=== PATIENT | female | born 1970 | race Caucasian/White ===

== ENCOUNTER 2017-01-29 15:20 | Outpatient (CLI) ==
[2017-01-29 15:53] LABS: ALBUMIN 3.6 g/dL (3.4-5.0); ALBUMIN/GLOBULIN RATIO 1.09; ANION GAP 12.1; BILIRUBIN,TOTAL 0.45 mg/dL (0.00-1.20); BUN/CREATININE RATIO 13.25; CALCIUM 9.8 mg/dL (8.2-10.2); CREATININE 0.83 mg/dL (0.60-1.30); POTASSIUM 4.1 mmol/L (3.5-5.10); TOTAL PROTEIN 6.9 g/dL (6.4-8.2)
== END 2017-01-29 15:21 | disposition home or self-care (01) ==
LOC: LAB 15:20
PROVIDERS: ATTEND Physician Assistant
DX: R35.0 Frequency of micturition (principal)
CPT/HCPCS: 36415; 80053

== ENCOUNTER 2017-01-30 09:54 | Outpatient (CLI) ==
[2017-01-30 10:11] LABS: BASOPHILS # (AUTO) 0.1 K/uL (0-0.2); BASOPHILS % (AUTO) 0.7 % (0.0-3.0); EOSINOPHILS # (AUTO) 0.3 K/ul (0.0-0.7); EOSINOPHILS % (AUTO) 4.3 % (0.0-7.0); HEMOGLOBIN 13.7 g/dl (12.0-16.0); IMMATURE GRANULOCYTE % (AUTO) 0.3 % (0.0-5.0); LYMPHOCYTES # (AUTO) 2.1 K/uL (0.60-3.4); LYMPHOCYTES % (AUTO) 29.4 (10.0-50.0); MEAN CORPUSCULAR HEMOGLOBIN 28.5 pg (27.0-31.0); MEAN CORPUSCULAR HGB CONC 33.4 (31.8-35.4); MEAN CORPUSCULAR VOLUME 85.2 fl (81.0-99.0); MONOCYTES # (AUTO) 0.5 K/uL (0.4-2.0); MONOCYTES % (AUTO) 6.5 (0-10); NEUTROPHILS # (AUTO) 4.2 K/ul (2.0-6.9); NEUTROPHILS % (AUTO) 58.8; PLATELET COUNT 210 10^3/uL (140-440); RED BLOOD COUNT 4.81 10^6/ul (4.20-5.40)
[2017-01-30 10:57] LABS: CHOL/HDL RATIO 4.8 (4.5-5.5)
--- NOTE | 2017-01-30 11:29 | CT ---
EXAM: CT ABDOMEN AND PELVIS HISTORY: Frequent urination, left upper quadrant abdominal pain, left flank pain. TECHNIQUE: CT abdomen and pelvis with and without intravenous contrast. Images were reconstructed using 5 mm section thickness. Reformations were prepared. 75 mL Omnipaque. COMPARISON: 03/31/2016 FINDINGS: Right hepatic lobe measures 20 cm. Diffuse low attenuation of the liver parenchyma without focal le aisha. Spleen within normal limits. Gallbladder is absent. Pancreas and adrenal glands appear norm al. No hydronephrosis or nephrolithiasis. Tiny cyst of the left renal cortex. The inferior left k idney has a 1.6 cm cystic mass with CT characteristics most consistent with a simple cyst and this i s grossly stable in size since at least 12/10/2013. No hydronephrosis, nephrolithiasis or evidence of ureteral obstruction. No perinephric fat stranding. Abdominal aorta has minimal atherosclerosis within normal caliber. Stomach is unremarkable. Appendix has been removed. There is a newly developed ventral abdominal w all hernia located supraumbilical to the left of midline containing a short segment of the lateral t ransverse colon without obstruction or wall thickening. The neck of the hernia is about 3.4 cm axial dimension. No pneumatosis. Bowel gas pattern remains within normal limits. Prominent size of the uterus without well-defined fibroids. Urinary bladder is within normal limits. No ascites. No acute bony finding. Lung bases are clear. No pneumoperitoneum. IMPRESSION: 1. Enlarged uterus without well-defined fibroid masses. Urinary bladder proper is within normal li mits although some mass effect on the organ may be caused by the enlarged uterus. 2. Recurrent ventral hernia as described in the second paragraph of the report. Bowel gas pattern remains within normal limits. No obvious bowel strangulation. 3. Enlarged fatty liver. 4. Probable bilateral renal cortical cysts.
== END 2017-01-30 09:55 | disposition home or self-care (01) ==
LOC: RAD 09:54
PROVIDERS: ATTEND Physician Assistant
DX: R35.0 Frequency of micturition (principal)
CPT/HCPCS: 36415; 80061; 83036; 84439; 84443; 85025

== ENCOUNTER 2017-02-19 11:58 | Outpatient (CLI) ==
--- NOTE | 2017-02-19 13:13 | US ---
EXAM: Bilateral lower extremity venous doppler. HISTORY: Bilateral lower extremity pain and swelling. COMPARISON: 01/14/2016. TECHNIQUE: Multiple grayscale and color doppler images were obtained. FINDINGS: There is normal flow, compressibility and augmentation of flow within the right and left common femoral, greater saphenous, profunda, femoral, popliteal, posterior tibial, anterior tibial a nd peroneal veins. IMPRESSION: No evidence for right or left lower extremity deep vein thrombosis at the levels examined.
== END 2017-02-19 11:59 | disposition home or self-care (01) ==
LOC: RAD 11:58
PROVIDERS: ATTEND Physician Assistant
DX: R60.0 Localized edema (principal)

== ENCOUNTER 2018-01-21 09:26 | Outpatient (CLI) ==
--- NOTE | 2018-01-21 10:36 | US ---
EXAM: Limited abdominal ultrasound. History: Recurrent incisional ventral hernia. Comparison: CT abdomen pelvis 01/30/2017 Technique: Multiple sonographic images through the abdomen were obtained. Color duplex Doppler was used to interrogate vascular flow. Findings / impression: Within the anterior abdomen to the left of midline, there is shadowing bowel w hich is protruding but difficult to determine if this has broken through the fascia and is a true her miguel ángel. Recommend correlation with CT.
== END 2018-01-21 09:27 | disposition home or self-care (01) ==
LOC: RAD 09:26
PROVIDERS: ATTEND Physician Assistant
DX: K43.2 Incisional hernia without obstruction or gangrene (principal); M54.5 Low back pain
CPT/HCPCS: 36415; 82565

== ENCOUNTER 2018-03-26 08:57 | Outpatient (CLI) ==
--- NOTE | 2018-03-26 11:48 | CT ---
EXAM: CT of the abdomen pelvis with and without contrast History: Bilateral flank pain. Comparison: CT abdomen pelvis 01/30/2017 Technique: Multiplanar CT images through the abdomen pelvis were obtained with and without the admin istration of IV contrast Findings: Lung bases are free of consolidation. No acute osseous abnormalities. No renal stones and no hydronephrosis. No ureteral calculi. Status post cholecystectomy. Enlarged f atty liver. No peripancreatic inflammation. No focal liver or splenic lesions. No pancreatic lesio ns. Adrenal glands are unremarkable. Stable small renal cysts. Left anterior ventral hernia contai cheryl a loop of transverse colon has increased and size compared to the prior study. There is no evid ence for bowel obstruction. Anterior abdominal wall subcutaneous edema and scarring similar to the p rior study. No bladder wall thickening. Adnexal structures appear appropriate for patient's age. N o perirectal inflammation. No free air. No ascites. Postsurgical changes again seen within the ant erior abdomen probably from previous hernia repair. Impression: 1. No acute intra-abdominal or pelvic process. 2. Increasing size of left ventral hernia containing a loop of transverse colon. There is no eviden ce for bowel obstruction at this time. 3. No change in the anterior abdominal wall scarring/cellulitis. 4. Enlarged fatty liver.
== END 2018-03-26 08:58 | disposition home or self-care (01) ==
LOC: RAD 08:57
PROVIDERS: ATTEND Physician Assistant
DX: R10.9 Unspecified abdominal pain (principal)
CPT/HCPCS: 36415; 82565

== ENCOUNTER 2018-11-29 11:57 | Outpatient (CLI) ==
--- NOTE | 2018-11-29 15:12 | DI ---
Exam: Three views of the thoracic spine. Comparison: CT performed 03/11/2012. Reason for exam: Pain. FINDINGS: No acute fracture or malalignment. There is multilevel degenerative disease with interver tebral body disc space height narrowing and osteophyte formation. The superiormost portion of the th oracic spine is not well seen secondary to summation artifact from the shoulders. Impression: No acute fracture or listhesis in the thoracic spine with multilevel degenerative disease.
== END 2018-11-29 11:58 | disposition home or self-care (01) ==
LOC: RAD 11:57
PROVIDERS: ATTEND Nurse Practitioner Family
DX: M54.6 Pain in thoracic spine (principal)

== ENCOUNTER 2019-10-25 20:05 | Inpatient (IN) ==
[2019-10-25] MEDS ORDERED: ROCEPHIN 1 GM/50 ML D5W 1 GM/50 ML BAG IV STA (20:22)
[2019-10-25] MEDS ORDERED: SODIUM CHLORIDE 1,000 ML IV STA (20:22)
[2019-10-25] MEDS ORDERED: TORADOL IVP STA (20:48)
[2019-10-25] MEDS ORDERED: MORPHINE 2 MG/ML SYRINGE IVP STA (21:24)
[2019-10-25] MEDS ORDERED: ZOFRAN 4 MG/2 ML IVP STA (21:24)
[2019-10-25] MEDS ORDERED: DILAUDID 1 MG/ML SYRINGE IVP STA (21:53)
--- NOTE | 2019-10-25 22:03 | DI ---
EXAM: Chest two views HISTORY: Fever FINDINGS: Normal cardiac and mediastinal contours. Normal pulmonary vasculature. Lungs are clear. No significant abnormality of the bony thorax. IMPRESSION: Chest radiograph within normal limits.
--- NOTE | 2019-10-25 22:08 | CT ---
EXAM: CT of the abdomen and pelvis without contrast. HISTORY: Fever. Flank pain. Hematuria. PROCEDURE: Contiguous axial CT images of the abdomen and pelvis without contrast with coronal and sa gittal reformats. FINDINGS: There is diffuse fatty infiltration of the liver. The gallbladder is surgically absent. T he pancreas, spleen and adrenal glands are normal in appearance. There is a fluid density cyst in th e left kidney. There is mild right hydronephrosis and hydroureter to the level of the ureterovesicle junction. The source of obstruction is not identified. There is right perinephric and periureteral inflammatory stranding. The bladder is minimally filled which limits the evaluation. There is blad brittani wall thickening measuring 8 mm with perivesical inflammatory stranding, suspicious for cystitis. The abdominal aorta is within normal limits in diameter. There is a left ventral hernia measuring 5 .2 x 11 cm containing a short segment of the transverse colon with no evidence of obstruction or inca rceration. There is surgical mesh in the anterior abdomen with adjacent segments of small bowel. There is diverticulosis of the colon with no evidence of diverticulitis. No free fluid or free air i n the abdomen or pelvis. The uterus is unremarkable. There are degenerative changes in the spine. There is stranding of the subcutaneous fat in the anterior wall of the abdomen suspicious for celluli tis. Impression: Mild right hydronephrosis and hydroureter as described which may be secondary to the jhonny dder wall thickening. The differential diagnosis includes infection. Diffuse bladder wall thickening with perivesical inflammatory stranding as described, suspicious for cystitis. Recommend correlation with urinary analysis. Colonic diverticulosis without diverticulitis. Ventral hernia as described. Surgical mesh in the anterior abdomen with adjacent small bowel. Recommend correlation with surgical history. Diffuse fatty infiltration of the liver. Stranding of the subcutaneous fat in the anterior wall of the abdomen, suspicious for cellulitis. Cholecystectomy.
[2019-10-25] MEDS ORDERED: TYLENOL PO PRN (22:15)
--- NOTE | 2019-10-25 22:15 | ED.PDOC ---
General ED Provider: Dr. KIKE MONTES Chief Complaint: Fever Stated Complaint: i have a kidney infection, my right side is hurting Time Seen by Physician: 22:14 Mode of Arrival: Walk-In Information Source: Patient Primary Care Provider: HERLINDA ODOM Nursing and Triage Documentation Reviewed and Agree: Yes Does patient meet sepsis criteria?: Yes If yes, has appropriate treatment been initiated?: Yes System Inflammatory Response Syndrome: Temp 101F or Greater Sepsis Protocol: For patient's 13 years and over: Temp is 96.8 and below OR 101 and greater Pulse >90 BPM Resp >20/minute Acutely Altered Mental Status Are patient's symptoms suggestive of a new infection, such as: -Pneumonia -Skin, Soft Tissue -Endocarditis -UTI -Bone, Joint Infection -Implantable Device -Acute Abdominal Infection -Wound Infection -Meningitis -Blood Stream Catheter Infection -Unknown Complaint Exam UTI Female Complaint/Exam Patient Complains of: Reports Painful urination Onset/Duration: 2-3 days Symptoms Are: Still present Timing: Constant Initial Severity: Mild Current Severity: Moderate Location of Pain: Reports Right and Flank Associated Signs and Symptoms: Reports Fever, Chills and Flank pain CVA Tenderness: Yes Suprapubic Tenderness: No Differential Diagnoses: Pyelonephritis Review of Systems Review Of Systems Constitutional: Reports Chills and Fever Eyes: Reports No symptoms Ears, Nose, Mouth, Throat: Reports No symptoms Respiratory: Reports No symptoms Cardiac: Reports No symptoms GI: Reports No symptoms : Reports Dysuria, Frequency and Flank pain Musculoskeletal: Reports No symptoms Skin: Reports No symptoms Neurological: Reports No symptoms Endocrine: Reports No symptoms Hematologic/Lymphatic: Reports No symptoms All Other Systems: Reviewed and Negative [facility] Medical History Anxiety Arthritis Bipolar disorder Depression Gastroesophageal reflux disease Hernia Hypertension Irregular menstrual cycle Family History SISTER Bartter's syndrome Mother Diabetes Father Myocardial infarction Grandfather/Grandmother Breast cancer, left Breast cancer, right Social History Smoking and tobacco status: Current every day smoker Female Reproductive History Menstrual Hx Hysterectomy: No Hx Tubal Ligation: No Physical Exam Physical Exam Appearance: Ill-appearing Ill-appearing: Mild Pain Distress: Mild Eyes: RENAY, EOMI and Conjunctiva clear ENT: Ears normal Neck: Supple Respiratory: Airway patent Cardiovascular: RRR GI/: Soft Musculoskeletal: Normal strength Skin: Warm Neurological: Sensation intact and Motor intact Psychiatric: Affect appropriate and Mood appropriate Interpretation Radiology Interpretation Radiology Interpretation By: Radiologist Radiology Results: Positive Exam Interpreted: CT Scan Critical Care Note Critical Care Note Total Time (mins): 0 Course Course Hematology/Chemistry: 10/25/19 20:40 10/25/19 20:40 Orders, Labs, Meds: Lab Review 10/25/19 10/25/19 10/25/19 20:30 20:40 20:40 WBC 13.30 H RBC 4.51 Hgb 13.6 Hct 39.9 MCV 88.5 MCH 30.2 MCHC 34.1 RDW Coeff of [place] 12.2 Plt Count 215 Immature Gran % (Auto) 0.4 Neut % (Auto) 82.2 Lymph % (Auto) 10.3 [place] % (Auto) 4.9 Eos % (Auto) 1.9 Baso % (Auto) 0.3 Immature Gran # (Auto) 0.1 Neut # (Auto) 10.9 H Lymph # (Auto) 1.4 [place] # (Auto) 0.7 Eos # (Auto) 0.3 Baso # (Auto) 0.0 Sodium 140.6 Potassium 3.67 Chloride 101.3 Carbon Dioxide 28.6 Anion Gap 14.37 BUN 11.6 Creatinine 0.65 Estimated GFR (MDRD) 97.00 BUN/Creatinine Ratio 17.84 Glucose 182.5 H Lactic Acid Calcium 9.51 Total Bilirubin 0.92 AST 24.5 ALT 27.6 Alkaline Phosphatase 96.6 Total Protein 7.81 Albumin 4.39 Globulin 3.42 Albumin/Globulin Ratio 1.28 Procalcitonin Serum , Qual Urine Color Dark Urine Clarity Cloudy Urine pH 6.0 Ur Specific [place] 1.025 Urine Protein 3+ Urine Glucose (UA) Negative Urine Ketones Negative Urine Blood 2+ Urine Nitrite Positive Urine Bilirubin Negative Urine Urobilinogen 0.2 Ur Leukocyte Esterase 2+ Urine Microscopic RBC 5-10 Urine Microscopic WBC Tntc Ur Squamous Epith Cells 2-5 Urine Bacteria 4+ Urine Mucus 1+ 10/25/19 10/25/19 10/25/19 20:40 20:40 20:40 WBC RBC Hgb Hct MCV MCH MCHC RDW Coeff of [place] Plt Count Immature Gran % (Auto) Neut % (Auto) Lymph % (Auto) [place] % (Auto) Eos % (Auto) Baso % (Auto) Immature Gran # (Auto) Neut # (Auto) Lymph # (Auto) [place] # (Auto) Eos # (Auto) Baso # (Auto) Sodium Potassium Chloride Carbon Dioxide Anion Gap BUN Creatinine Estimated GFR (MDRD) BUN/Creatinine Ratio Glucose Lactic Acid 1.93 Calcium Total Bilirubin AST ALT Alkaline Phosphatase Total Protein Albumin Globulin Albumin/Globulin Ratio Procalcitonin 0.32 Serum , Qual Negative Urine Color Urine Clarity Urine pH Ur Specific [place] Urine Protein Urine Glucose (UA) Urine Ketones Urine Blood Urine Nitrite Urine Bilirubin Urine Urobilinogen Ur Leukocyte Esterase Urine Microscopic RBC Urine Microscopic WBC Ur Squamous Epith Cells Urine Bacteria Urine Mucus Orders Category Date Time Status ED IV/MEDIPORT/POWERPORT .ONCE EMERGENCY 10/25/19 20:22 Active BLOOD CULTURE (ED ONLY) Stat LAB 10/25/19 20:40 Received CBC W/ AUTO DIFF Stat LAB 10/25/19 20:40 Completed COMPREHENSIVE METABOLIC PANEL Stat LAB 10/25/19 20:40 Completed LACTIC ACID Stat LAB 10/25/19 20:40 Completed PROCALCITONIN Stat LAB 10/25/19 20:40 Completed SERUM Stat LAB 10/25/19 20:40 Completed URINALYSIS C & S IF INDICATED Stat LAB 10/25/19 20:30 Completed URINE CULTURE Stat LAB 10/25/19 20:30 Received 0.9 % Sodium Chloride [Saline Flush] MEDS 10/25/19 20:22 Active 1 syr IVF PRN PRN Ceftriaxone/D5w 1 gm Premix [Rocephin 1 gm/50 ml D5w] MEDS 10/25/19 20:22 Discontinued 1 gm in 50 ml IV ONCE Hydromorphone HCl [Dilaudid 1 mg/ml Syringe] MEDS 10/25/19 21:53 Discontinued 1 mg IVP ONCE STA Ketorolac Tromethamine [Toradol] MEDS 10/25/19 20:48 Discontinued 30 mg IVP ONCE STA Morphine Sulfate [Morphine 2 mg/ml Syringe] MEDS 10/25/19 21:24 Discontinued 2 mg IVP ONCE STA Ondansetron HCl/Pf [Zofran 4 mg/2 ml] MEDS 10/25/19 21:24 Discontinued 4 mg IVP ONCE STA Sodium Chloride 0.9% [Sodium Chloride] 1,000 ml MEDS 10/25/19 20:22 Active IV 100 mls/hr CHEST, 2 VIEWS PA & LAT Stat RADS 10/25/19 20:[address] ABD/PEL WO RENAL STONE PROT Stat RADS 10/25/19 20:24 Completed Medications Generic Name Dose Route Start Last Admin Trade Name Freq PRN Reason Stop Dose Admin Sodium Chloride 1,000 mls @ 100 mls/hr 10/25/19 20:22 10/25/19 20:37 Sodium Chloride IV 10/26/19 06:21 100 mls/hr .Q10H STA Administration Sodium Chloride 1 syr 10/25/19 20:22 10/25/19 20:37 Saline Flush IVF 1 syr PRN PRN Administration To flush IV Discontinued Medications Generic Name Dose Route Start Last Admin Trade Name Freq PRN Reason Stop Dose Admin Hydromorphone HCl 1 mg 10/25/19 21:53 10/25/19 21:58 Dilaudid 1 Mg/Ml Syringe IVP 10/25/19 21:54 1 mg ONCE STA Administration CEFTRIAXONE/D5W 1 GM PREMIX 1 gm in 50 mls @ 75 mls/hr 10/25/19 20:22 10/25/19 20:37 Rocephin 1 Gm/50 Ml D5w IV 10/25/19 21:01 75 mls/hr ONCE STA Administration Ketorolac Tromethamine 30 mg 10/25/19 20:48 10/25/19 20:52 Toradol IVP 10/25/19 20:49 30 mg ONCE STA Administration Morphine Sulfate 2 mg 10/25/19 21:24 10/25/19 21:29 Morphine 2 Mg/Ml Syringe IVP 10/25/19 21:25 2 mg ONCE STA Administration Ondansetron HCl 4 mg 10/25/19 21:24 10/25/19 21:28 Zofran 4 Mg/2 Ml IVP 10/25/19 21:25 4 mg ONCE STA Administration Vital Signs: Temp Pulse Resp BP Pulse Ox 10/25/19 20:12 102.5 F H 125 H 20 155/84 H 95 Discharge Plan Discharge Patient Disposition: ADMITTED INPATIENT Discharge Problem: Pyelonephritis Prescriptions: No Action alprazolam [Xanax] 1 MG tablet 1 mg PO BID PRN (Reason: Anxiety) RF: 0 lamotrigine [Lamictal] 100 MG tablet 50 mg PO DAILY RF: 0 Prilosec OTC 20 MG tablet,delayed release (DR/EC) 20 mg PO d RF: 0 lisinopril 5 MG tablet 5 mg PO DAILY Qty: 90 RF: 6 ED Provider: KIKE MONTES Condition: Good
[2019-10-25] MEDS ORDERED: ZOFRAN 4 MG/2 ML IVP PRN (22:18)
[2019-10-25] MEDS ORDERED: XANAX PO PRN (22:20)
[2019-10-25] MEDS ORDERED: LEVAQUIN 500 MG/100 ML D5W 500 MG/100 ML BAG IV ONE (22:37)
[2019-10-25] MEDS: DILAUDID 1 MG/ML SYRINGE IVP PRN (22:44)
[2019-10-25 23:28] VITALS: BMI 44.2
[2019-10-26] MEDS: PRILOSEC PO SCH (05:40)
[2019-10-26] MEDS: DILAUDID 1 MG/ML SYRINGE IVP PRN ×3 (07:05→21:35)
[2019-10-26] MEDS: ROCEPHIN 1 GM/50 ML D5W 1 GM/50 ML BAG IV SCH (08:58)
[2019-10-26] MEDS: ZESTRIL PO SCH (08:58)
[2019-10-26] MEDS: LOVENOX SUBCUT SCH (08:59)
[2019-10-26] MEDS: LAMICTAL PO SCH (08:59)
[2019-10-26] MEDS ORDERED: LEVAQUIN 500 MG/100 ML D5W 500 MG/100 ML BAG IV SCH ×2 (21:00)
[2019-10-27] MEDS: DILAUDID 1 MG/ML SYRINGE IVP PRN ×4 (02:49→20:19)
[2019-10-27] MEDS: PRILOSEC PO SCH (05:40)
[2019-10-27] MEDS: LOVENOX SUBCUT SCH (08:21)
[2019-10-27] MEDS: ZESTRIL PO SCH (08:21)
[2019-10-27] MEDS: ROCEPHIN 1 GM/50 ML D5W 1 GM/50 ML BAG IV SCH (08:21)
[2019-10-27] MEDS: LAMICTAL PO SCH (08:21)
--- NOTE | 2019-10-27 10:49 | HP ---
CHIEF COMPLAINT: " I am hurting and I think I have a kidney infection." DISCUSSION: This is a 48 year old lady who presented to the emergency department with flank pain and fever. She was treated for a urinary tract infection by her PCP about 2 weeks ago. She doesn't feel like she "got over it". She presents with frequency, flank pain, fever and chills. She was seen in the emergency department with pyuria and CT did reveal evidence of a mild hydronephrosis on the right side without any evidence of kidney stones obstruction. Because of fevers and chills and her persistent symptoms we felt the patient would require admission for treatment of pyelonephritis and was admitted to my services as hospitalist. PAST MEDICAL HISTORY: MEDICATIONS: Xanax Lamictal Prilosec Lisinopril ALLERGIES: No known drug allergies PAST MEDICAL HISTORY: History of hypertension History of anxiety History of GERD SOCIAL HISTORY: She is a one pack per day smoker. No alcohol or illicit drug use is noted. FAMILY HISTORY: Reviewed her sister has a history of a Bartter's syndrome. Family history of diabetes and a history of PR. REVIEW OF SYSTEMS: No headaches, visual changes, tinnitus, chest pain, shortness of breath, hemoptysis, abdominal pain, blood in the stool, urinary symptoms or seizures. She has had right sided flank pain. PHYSICAL EXAMINATION: V/S: Temperature 102.5, pulse 125, respiratory rate 20, blood pressure 155/84 HEENT: Pupils are round. NECK: Supple. CHEST: Clear. CARDIOVASCULAR: Regular rate and rhythm. ABDOMEN: Soft, nontender. EXTREMITIES: Distal extremities without cyanosis or edema. ASSESSMENT: 1. Pyelonephritis PLAN: 1. Antibiotics 2. Treat temperature 3. Treat pain 4. Will await urine and blood cultures 5. Please see orders. MTDD
--- NOTE | 2019-10-27 10:52 | PN ---
DATE OF VISIT: 10/26/19 SUBJECTIVE: Rebecca says that she feels a little better although still having low grade temperatures and flank pain. PHYSICAL EXAMINATION: V/S: Temperature 99.9, pulse 90, respiratory rate 20, blood pressure 12/90 HEENT: Pupils are round. NECK: Supple. CHEST: Clear. CARDIOVASCULAR: Regular rate and rhythm. ABDOMEN: Soft, nontender. EXTREMITIES: Distal extremities without cyanosis or edema. ASSESSMENT: 1. Pyelonephritis PLAN: 1. Continue antibiotics 2. Awaiting urine cultures results 3. Please see orders. MTDD
--- NOTE | 2019-10-27 10:54 | PN ---
DATE OF VISIT: 10/27/19 SUBJECTIVE: Rebecca continues to feel better although still noting a low grade fever. She still notes right flank pain but it has improved. PHYSICAL EXAMINATION: V/S: Temperature 100.2, pulse 100, respiratory rate 18,blood pressure 12/80. HEENT: Pupils are round. NECK: Supple. CHEST: Clear. CARDIOVASCULAR: Regular rate and rhythm. ABDOMEN: Soft, nontender. EXTREMITIES: Distal extremities without cyanosis or edema. ASSESSMENT: 1. Pyelonephritis PLAN: 1. Continue antibiotics 2. Awaiting urine and blood culture results 3. Please see orders. MTDD
[2019-10-28] MEDS: DILAUDID 1 MG/ML SYRINGE IVP PRN ×2 (03:08→09:33)
[2019-10-28] MEDS: PRILOSEC PO SCH (05:39)
[2019-10-28] MEDS: ZESTRIL PO SCH (08:56)
[2019-10-28] MEDS: LOVENOX SUBCUT SCH (08:57)
[2019-10-28] MEDS: ROCEPHIN 1 GM/50 ML D5W 1 GM/50 ML BAG IV SCH (08:57)
[2019-10-28] MEDS: LAMICTAL PO SCH (08:57)
[2019-10-28 14:31] VITALS: BP 107/66; TEMP 97.9
--- NOTE | 2019-10-29 13:23 | DS ---
DISCHARGE DIAGNOSIS: 1. Pyelonephritis. 2. E. Coli. DISCUSSION: This is a 48-year-old lady who was admitted through the Emergency Department with fever, chills, nausea and right flank pain. Her pain was severe at times. CT scan performed in the Emergency Department revealed a mild hydronephrosis but no obvious stone. She was found to have pyuria in her urine and at this point the patient was admitted to my services as hospitalist for treatment of the pyelonephritis. CLINICAL COURSE: She was started on IV antibiotics. She did defervesce. She began to feel better. Her pain improved. Her urine was noted to be positive for E. coli, sensitive to Bactrim. She was tolerating a regular diet. At this point, because her symptoms had improved she was discharged. She was discharged with prescription for Bactrim DS b.i.d. for 10 days plus, Lortab 7.5 mg every four hours as needed for pain. She will followup with me in one week in the office for recheck urine and culture. MARIANA
== END 2019-10-28 18:30 | disposition home or self-care (01) | DRG 690 ==
LOC: ED 20:11 → MEDSURG B 22:19
PROVIDERS: ADMIT Family Medicine; ATTEND Family Medicine
DX: N10 Acute pyelonephritis; R10.9 Unspecified abdominal pain; B96.20 Unspecified Escherichia coli [E. coli] as the cause of diseases classified elsewhere; R50.9 Fever, unspecified